=== PATIENT | female | born 1950 | race Caucasian/White ===

== ENCOUNTER 2020-06-23 09:48 | Outpatient (CLI) | payer MEDICARE, MEDICAID, SELFPAY | END 2020-06-23 09:49 | disposition home or self-care (01) | LOC: ANHBWCAUD 09:48 | DX: H90.3 Sensorineural hearing loss, bilateral (principal) | CPT/HCPCS: 92557; 92567 ==

== ENCOUNTER 2024-11-27 09:46 | Observation (INO) | payer MEDICARE, MEDICAID, SELFPAY ==
[2024-11-27] VITALS (11 sets, daily range): BP systolic 134–187; BP diastolic 52–81; PULSE 57–68; RESP 13–18; TEMP 36.6; O2SAT 95–100; BMI 37.3
--- NOTE | ~2024-11-27 | XR_ITS ---
EXAMINATION: XR chest 1V portable DATE: 11/27/2024 11:02 INDICATION: Chest pain. TECHNIQUE: A single frontal view of the chest was obtained. COMPARISON: None. FINDINGS: There is no pneumonia, pleural effusion, or pneumothorax. Cardiomegaly is noted. Surgical c lips in the right upper quadrant are likely from cholecystectomy. IMPRESSION: 1. Cardiomegaly. Reviewed, dictated and finalized at location L. IMPRESSION: 1. Cardiomegaly.
--- NOTE | 2024-11-27 09:51 | ECG_ITS ---
Test Date: 2024-11-27 09:54:44 Measurements Intervals [place] Rate: 65 P: 187 NE: 130 QRS: 5 QRSD: 102 T: 25 QT: 389 QTc: 404 Interpretive Statements SINUS RHYTHM LOW QRS VOLTAGE IN PRECORDIAL LEADS Electronically Signed On 11-28-2024 11:38:19 CDT by Mamadou Encarnacion D.O
[2024-11-27 10:42] LABS: Alanine Aminotransferase 11 U/L (6-35); Albumin Level 4.2 g/dL (3.5-5.1); Alkaline Phosphatase 122 U/L (38-126); Anion Gap 10 mmol/L (4-12); Aspartate Amino Transferase 21 U/L (14-36); Bilirubin,Total 0.3 mg/dL (0.2-1.3); Blood Urea Nitrogen 14 mg/dL (7-17); Calcium 9.5 mg/dL (8.4-10.2); Carbon Dioxide 26 mmol/L (22-30); Chloride 98 mmol/L (98-107); Estimated CRCL calculation 68 ml/min; Estimated Glomerular Filt Rate > 60; Glucose 96 mg/dL (65-110); Lipase 94 U/L (23-300); Potassium 4.5 mmol/L (3.4-5.0); Sodium 134 mmol/L (137-145)
[2024-11-27 10:47] LABS: Prothrombin Time 14.1 Seconds (11.1-14.7)
[2024-11-27 10:52] LABS: Troponin I < 0.012 ng/mL (0.000-0.034)
[2024-11-27 11:00] LABS: Basophils Percent Auto 0.5 % (0.2-1.2); Eosinophils Absolute Auto 0.2 K/mm3 (0-0.3); Hematocrit 31.1 % (37.0-47.0); Hemoglobin 10.2 g/dL (12.0-15.0); Immature Granulocyte Absolute 0.02 K/mm3 (0.00-0.031); Immature Granulocyte Percent A 0.4 % (0-0.5); Lymphocytes Absolute Auto 2.23 K/mm3 (0.9-3.2); Mean Corpuscular HGB Conc 32.8 g/dl (32-36); Mean Corpuscular Hemoglobin 30.6 pg (26-34); Mean Corpuscular Volume 93.4 fl (80-100); Mean Platelet Volume 9.3 fl (7.4-10.4); Monocytes Absolute Auto 0.6 K/mm3 (0.1-0.6); Monocytes Percent Auto 10.6 % (2.6-8.5); Neutrophils Absolute Auto 2.5 K/mm3 (1.3-6.7); Neutrophils Percent Auto 45.5 % (45.5-73.1); Platelet Count Result 357 k/mm3 (150-375); Red Blood Count 3.33 M/mm3 (4.2-5.4); Red Cell Distribution Width 13.6 % (11.5-14.5); White Blood Count 5.6 K/mm3 (4.5-10.0)
--- OUTSIDE RECORDS SUMMARY | 2024-11-27 11:22 | XMS_ITS | Referral Summary ---
Author Organization [facility] Medical Office Building B Address [address] [place] [address] Care Team Providers Care Websphere Portal Architect Name Role Phone Marcelina Morley MD Primary Care Provider [phone] Allergies No known active allergies Medications pedi multivit 97-ifxvngyw-oylu (MULTI-VIT WITH FLUORIDE-IRON) 0.25mg fluoride -10 mg iron/mL drops 0 2 Active Additional Information Patient not taking.Reported on 06/26/2023 calcium carbonate-vitamin D3 (OS-FELIPA 500 + D3) 1,250mg (500mg elemental) - 200 units per tablet 0 2 Active Additional Information Patient not taking.Reported on 06/26/2023 primidone (MYSOLINE) 250 mg tablet take 1 tablet (250MG) by oral route 3 times every day for maintenance 0 2 Active Additional Information Patient taking differently:250 mg2 times daily, Reported on 06/26/2023 sertraline (ZOLOFT) 100 mg tablet 8 Active lamoTRIgine (LaMICtal) 200 mg tablet Take 1 tablet (200 mg total) by mouth 5 Active vit C,M-Up-vwepf-lute in-zeaxan [phone] tz-dxpt-mx-mg capsule Take by mouth Active bisacodyl 5 mg tablet Take by mouth Active diphenhydrAMINE (BENADRYL) 25 mg capsule Take 1 tablet/capsule (25 mg total) by mouth every 6 (six) hours as needed for itching Active docusate sodium (COLACE) 100 mg capsuleIndication s:constipation Take 1 capsule (100 mg total) by mouth 2 (two) times a day Active ibuprofen (ADVIL,MOTRIN) 600 mg tablet Take 1 tablet (600 mg total) by mouth every 6 (six) hours as needed for pain Active aspirin 325 mg tablet Take 1 tablet (325 mg total) by mouth daily Active alum-mag hydroxide-simeth 200-200-25 mg chewable tablet Take by mouth every 6 (six) hours as needed for indigestion Active guaiFENesin (ROBITUSSIN) syrup 100 mg/5 mL Take 10 mL (200 mg total) by mouth 3 (three) times a day as needed for cough Active bacitracin 500 unit/gram ointment Apply topically 2 (two) times a day 120 g 0 Active Additional Information Patient not taking.Reported on 06/26/2023 nystatin ointment nystatin 100,000 unit/gram topical ointment Active carBAMazepine (TEGretol) 200 mg tablet Take 0.5 tablets (100 mg total) by mouth 2 (two) times a day 60 tablet 11 3 Active vit C,W-Lg-wpsex-lute in-zeaxan (Healthy Eyes SuperVision2) 250-90-10-1 mg capsule Take by mouth Active calcium carbonate (OS-FELIPA) 1,250 mg (500 mg elemental) tablet Take 1 tablet (1,250 mg total) by mouth 2 (two) times a day Active rosuvastatin (CRESTOR) 5 mg tablet Take 1 tablet (5 mg total) by mouth daily Active multivit ysudcwds-jdbp-EC- calcium (Therems-M) 9 mg iron-400 mcg tabletIndications :Vitamin Deficiency Prevention Take 1 tablet by mouth daily Active cholecalciferol (VITAMIN D-3) 2000 unit capsule 1 capsule (2,000 Units total) Active acetaminophen (TYLENOL) 325 mg tablet Take 2 tablets (650 mg total) by mouth every 6 (six) hours as needed for pain Active bismuth subsalicylate 525 mg/15 mL suspension Take by mouth Activ e Active Problems Problem Noted Date Diagnosed Date Therapeutic drug monitoring 02/18/2017 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 Denies 10/06/2023 Comments Unknown Sex and Gender Information Value Date Recorded Sex Assigned at Not on file Legal Sex Female 5:55 PM REFRIGERATOR TESTER Gender Identity Not on file Sexual Orientation Not on file Last Filed Vital Signs Vital Sign Reading Time Taken Comments Blood Pressure 119/57 10/06/2023 6:30 AM REFRIGERATOR TESTER Pulse 81 10/06/2023 6:30 AM REFRIGERATOR TESTER Temperature 36.7 C (98 F) 10/14/2019 9:15 PM REFRIGERATOR TESTER Respiratory Rate 18 12/25/2022 9:39 AM CDT Oxygen Saturation 94% 10/06/2023 6:30 AM REFRIGERATOR TESTER Inhaled Oxygen Concentration - - Weight 96.2 kg (212 lb) 10/06/2023 5:59 AM REFRIGERATOR TESTER Height 157.5 cm (5' 2 ) 10/06/2023 5:59 AM REFRIGERATOR TESTER Body Mass Index 38.78 10/06/2023 5:59 AM REFRIGERATOR TESTER Plan of Treatment Not on file Insurance MEDICARE [place] MEDICARE [facility] Care Teams Websphere Portal Architect Relationship Specialty Start Date End Date Marcelina Morley MD [address] [place] [address] PCP - General Family Medicine 12/25/22
--- OUTSIDE RECORDS SUMMARY | 2024-11-27 11:22 | XMS_ITS | Clinical Summary ---
Author Organization [facility] Medical Office Building B Address [address] [place] [address] Care Team Providers Care Soybean Specialties Cook Name Role Phone Marcelina Morley MD Primary Care Provider [phone] Allergies No known active allergies Medications pedi multivit 70-wkkvhcpn-ctwp (MULTI-VIT WITH FLUORIDE-IRON) 0.25mg fluoride -10 mg [...] mg total) by mouth 5 Active vit C,K-Ze-ydvdq-lute in-zeaxan [phone] sw-armc-oj-mg capsule Take by mouth Active bisacodyl 5 [...] day 60 tablet 11 3 Active vit C,R-Sv-ewats-lute in-zeaxan (Healthy Eyes SuperVision2) 250-90-10-1 mg capsule Take by mouth Active calcium carbonate (OS-FELIPA) 1,250 mg (500 mg elemental) tablet Take 1 tablet (1,250 mg total) by mouth 2 (two) times a day Active rosuvastatin (CRESTOR) 5 mg tablet Take 1 tablet (5 mg total) by mouth daily Active multivit vhaqhigf-qecy-DD- calcium (Therems-M) 9 mg iron-400 mcg tabletIndications [...] Mental retardation Epilepsy 04/28/2012 Overview (12/21/2016): Epilepsy Medical History Medical History Date Comments Hx Other Medical Hysterectomy Major depressive disorder major depressive disorder Hx Other Medical moderate mental retardation Seizure disorder (HCC) Seizure d isorder Social History Tobacco Use Types Packs/Day Years [...] on file Legal Sex Female 5:55 PM DROP HAMMER OPERATOR HELPER Gender Identity Not on file Sexual Orientation Not on file Obstetrics History Last Filed Vital Signs Vital Sign Reading Time Taken Comments Blood Pressure 119/57 10/06/2023 6:30 AM DROP HAMMER OPERATOR HELPER Pulse 81 10/06/2023 6:30 AM DROP HAMMER OPERATOR HELPER Temperature 36.7 C (98 F) 10/14/2019 9:15 PM DROP HAMMER OPERATOR HELPER Respiratory Rate 18 12/25/2022 9:39 AM CDT Oxygen Saturation 94% 10/06/2023 6:30 AM DROP HAMMER OPERATOR HELPER Inhaled Oxygen Concentration - - Weight 96.2 kg (212 lb) 10/06/2023 5:59 AM DROP HAMMER OPERATOR HELPER Height 157.5 cm (5' 2 ) 10/06/2023 5:59 AM DROP HAMMER OPERATOR HELPER Body Mass Index 38.78 10/06/2023 5:59 AM DROP HAMMER OPERATOR HELPER Plan of Treatment Health Maintenance Due Date Last Done Comments Colon Cancer Screening-Colonoscopy 1950 Depression Screening 1950 Fall Risk Assessment 1950 Hepatitis C Screening 1950 Hepatitis B Screening 1969 Zoster Vaccine (1 of 2) 2001 Pneumococcal vaccine 65+ (2 of 2 - PCV) 07/14/2014 07/14/2013, 06/16/2013 Well Visit 65+ 2016 Osteoporosis Screening-Bone Density Scan 12/22/2022 12/22/2020, 12/22/2020 Breast Cancer Screening-Mammogram 05/10/2024 05/10/2023, 05/09/2022, 04/20/2021, Additional history exists Covid-19 Vaccine (3 - 2023-2 5 season) 2024 11/15/2020, 10/25/2020 Influenza Vaccine (#1) 2024 , 06/24/2019, 07/03/2018, Additional history exists DTaP/Tdap/Td Vaccine (3 - Td or Tdap) 04/15/2028 04/15/2018, 07/02/2008, 06/16/2008 Insurance MEDICARE [facility] MEDICARE IDMO Care Teams Soybean Specialties Cook Relationship Specialty Start Date End Date Marcelina Morley MD [address] [place] [address] PCP - General Family Medicine 12/25/22
--- OUTSIDE RECORDS SUMMARY | 2024-11-27 11:22 | XMS_ITS | Data Portability ---
Author Organization [place] [facility] [employer], Main Office Address [address] [place] [address] Care Team Providers Care Cancer Genetics Assistant Name Role Phone COURTNEY VENTURA Primary Care Provider [phone] Assessment No assessment recorded. Plan of Treatment Reminders Order Date Submit Date Provider Last Modified By Organization Details Last Modified Time Details Appointments None record ed. Lab None record ed. Referral None record ed. Procedures None record ed. Surgeries None record ed. Imaging None record ed. Medication Orders None record ed. Patient TargetsNo targets recorded. Patient Instructions Encounter Date Encounter Id Patient Instructions Last Modified By Organization Details Last Modified Time 09/05/2023 [id number] cerumen was irrigated bilaterally [email or web address] Not available 09/05/2023 11:46:09 Reason for Referral None Reported. Problems Name Problem SNOMED Code Status Onset Date Resolution Date Notes Provider Name and Address Organization Details Recorded Time Impacted cerumen of bilateral ears 0025963043752 108 Active 2021 Not Available [facility] 3 05:10:47 Problem Notes None recorded. Medical Equipment None Reported. Allergies No known drug allergies Medications Name Sig Start Date Stop Date Status Note LastModified by Organization Details LastModified Time silver sulfadiazin e 1 % topical cream active Not Available Not Available Not Available acetaminoph en 325 mg tablet Take 2 tablets every 6 hours by oral route. active Not Available Not Available No t Available lamotrigine 200 mg tablet active Not Available Not Available Not Available ofloxacin 0.3 % eye drops 09/05 completed Not Available Not Available Not Available nystatin 100,000 unit/gram topical ointment active Not Available Not Available Not Available sertraline 100 mg tablet active Not Available Not Available Not Available permethrin 5 % topical cream 09/05 completed Not Available Not Available Not Available ciprofloxac in 500 mg tablet 03/03 completed Not Available Not Available Not Available zinc oxide 20 % topical ointment active Not Available Not Available Not Available ketorolac 0.5 % eye drops 09/05 completed Not Available Not Available Not Available primidone 250 mg tablet active Not Available Not Available Not Available prednisolon e acetate 1 % eye drops,suspe nsion 09/05 completed Not Available Not Available Not Available carbamazepi ne 100 mg chewable tablet active Not Available Not Available Not Available docusate sodium 100 mg capsule Take 1 capsule every day by oral route. active Not Available Not Available No t Available Banophen 25 mg capsule Take 1 capsule every 4 hours by oral route. active Not Available Not Available No t Available ibuprofen 600 mg tablet Take 1 tablet 3 times a day by oral route. active Not Available Not Available No t Available sertraline 50 mg tablet 03/03 completed Not Available Not Available Not Available white petrolatum topical jelly 01/08 completed Not Available Not Available Not Available amoxicillin 875 mg-potassiu m clavulanate 125 mg tablet 01/08 completed Not Available Not Available Not Available bisacodyl 5 mg tablet Take 1 tablet every day by oral route. active Not Available Not Available No t Available Stomach Relief 525 mg/15 mL oral suspension Take by oral route. active Not Available Not Available No t Available Oyster Shell Calcium-Vit mina D3 500 mg-5 mcg (200 unit) tablet 09/05 completed Not Available Not Available Not Available rosuvastati n 5 mg tablet active Not Available Not Available Not Available nitrofurant oin monohydrate /macrocryst als 100 mg capsule 09/05 completed Not Available Not Available Not Available calcium 250 mg (as carbonate)- vitamin D3 3.125 mcg (125 unit) tablet 01/08 completed Not Available Not Available Not Available sertraline 09/05 completed Not Available Not Available Not Available carbamazepi ne 03/03 completed Not Available Not Available Not Available lamotrigine 09/05 completed Not Available Not Available Not Available Aquaphor 4% ointment active Not Available Not Available No t Available primidone 03/03 completed Not Available Not Available Not Available Robafen 200 mg/10ml syrup 01/08 completed Not Available Not Available Not Available Oyster Shell + D3 active Not Available Not Available N ot Available Vitamin D3 50 mcg (2,000 unit) capsule Take by oral route. 01/08 completed Not Available Not Available Not Available Healthy Eyes SuperVision 250mg- 90mgm cap 01/08 completed Not Available Not Available Not Available Antacid-Ant igas 200 mg-200 mg-20 mg/5 mL oral suspension Take by oral route. active Not Available Not Available No t Available Rebeca-Tussin 100 mg/5 mL oral liquid Take 10 mL every 4 hours by oral route. active Not Available Not Available No t Available Therems-M 9 mg iron-400 mcg tablet 01/08 completed Not Available Not Available Not Available Healthy Eyes SuperVision 2 active Not Available Not Available Not Available Thera-M 19 mg iron-400 mcg tablet active Not Available Not Available N ot Available Vitals Date Recorded Body height Body temperature Provider N tiffanie and Address Organization Details Last Updated DateTime 09/01/2021 157.48 cm 97.8 [degF] Not Available [facility] 11/14/2022 05:06:00 Date Recorded Body height Body temperature Provider N tiffanie and Address Organization Details Last Updated DateTime 01/30/2022 157.48 cm 98.3 [degF] Not Available [facility] 11/14/2022 05:06:00 Date Recorded Body height Body temperature Provider N tiffanie and Address Organization Details Last Updated DateTime 12/13/2022 157.48 cm 97.8 [degF] Anna Odonnell RN [facility] [employer] 12/13/2022 11:11:59 Date Recorded Body height Body mass index (BMI) Body weight Body temperature Provider Name and Address Organization Details Last Updated DateTime 09/05/2023 157.48 cm 38 kg/m2 52799.21 g 97.6 [degF] Anna Odonnell RN [facility] [employer] 09/05/2023 11:19:55 Date Recorded Body height Body temperature Provider N tiffanie and Address Organization Details Last Updated DateTime 01/09/2024 157.48 cm 97.6 [degF] Anna Odonnell RN [facility] [employer] 01/09/2024 14:31:47 Social History Question Answer Notes LastModified by Organizat ion Details LastModified Time Tobacco Smoking Status Never Smoker Not Available [facility] 11/14/2022 05:01:56 What Is Your Level Of Alcohol Consumption? None [id number] Information not available 11/14/2022 What Is Your Level Of Caffeine Consumption? Occasional [id number] Information not available 11/14/2022 How Much Tobacco Do You Chew? None [id number] Information not available 11/14/2022 In The 14 Days Before Symptom Onset, Have You Had Close Contact With A Laboratory-confir med COVID-19 While That Case Was Ill? No [id number] Information not available 11/14/2022 In The 14 Days Before Symptom Onset, Have You Had Close Contact With A Person Who Is Under Investigation For COVID-19 While That Person Was Ill? No [id number] Information not available 11/14/2022 Which Illicit Or Recreational Drugs Have You Used? None [id number] Information not available 11/14/2022 Do You Or Have You Ever Used E-cigarettes Or Vape? Never Used Electronic Cigarettes [id number] Information not available 11/14/2022 Have You Recently Traveled Abroad? No [id number] Information not available 11/14/2022 Sex: Unknown Functional Status None recorded. Mental Status None recorded. Family History Relationship Description Onset Age of this Age Resolved Age Notes LastModified by Organization Details LastModified Time Father No current problems or disability [email or web address] Not available 12/13 11:12:54 Mother No current problems or disability [email or web address] Not available 12/13 11:12:54 Medical History Condition Response SLEEP APNEA N MRSA N ALLERGIES/HAYFEVER N LUNG DISEASE/DISORDER N INSOMNIA N RADIATION / CHEMOTHERAPY N COPD N HIGH CHOLESTEROL / HYPERLIPIDEMIA N HYPERTHYROIDISM N BLOOD DISEASES N EAR OR HEARING PROBLEMS N HYPOTHYROIDISM N DEPRESSION (INCLUDING POST ) Y HAVE YOU BEEN HOSPITALIZED OR SEEN IN [facility] ER IN THE PAST YEAR ? N STROKE/TIA N ULCERS N OBESITY N HISTORY WITH COMPLICATIONS WITH ANESTHES IA ? N ANEURYSM N NO SIGNIFICANT PAST MEDICAL HISTORY N USE OF BLOOD THINNERS N DIABETES, TYPE N PARATHYROID DISEASE N ENT N SEASONAL ALLERGIES N HEARTBURN / REFLUX N HEPATITIS / LIVER DISEASE N SLEEP DISORDER N HEADACHES/MIGRAINES N SEIZURES/EPILEPSY Y CHF N PACEMAKER N DIZZINESS N HEART DISEASE/HEART PROBLEMS Y AIDS/HIV N FRACTURES N HYPERTENSION N CANCER: SPECIFY N TOURETTE'S N BLOOD TRANSFUSION N ANESTHESIA COMPLICATIONS N ANEMIA/BLOOD DISORDER N CHRONIC EAR INFECTIONS N TUBERCULOSIS N Gynecological HistoryNo gynecological history recorded. Obstetrics History GPAL:G 0 P 0 0 0 0 Past Encounters Encounter ID Performer Location Encounter Start Date Encounter Closed Date Diagnosis/Indication Diagnosis SNOMED-CT Code Diagnosis ICD10 Code Diagnosis Note [id number] _PETER IGRATION_ DEFAULT_1 _1 , 03/03/2021 00:00:00 03/03/2021 12:18:38 [id number] _PETER IGRATION_ DEFAULT_1 _1 , 09/01/2021 00:00:00 09/01/2021 11:35:16 [id number] [facility] [place] [address] [place] [address] 01/30/2022 00:00:00 01/30/2022 11:29:15 [id number] MD ALYSON [facility] [place] [address] [place] [address] 12/13/2022 11:01:44 12/13/2022 11:29:54 Impacted cerumen of bilateral ears [id number] 392444 H61.23 [id number] Robert Aponte MD [facility] [place] [address] [place] [address] 09/05/2023 10:51:12 09/05/2023 11:48:10 Impacted cerumen of bilateral ears [id number] 453074 H61.23 [id number] Robert Aponte MD [facility] [place] [address] [place] [address] 01/09/2024 14:16:40 01/13/2024 15:07:20 Impacted cerumen of bilateral ears [id number] 460499 H61.23 Health Concerns Section Related Observation LastModified by Organization Detai ls LastModified Time None Recorded Concern Status LastModified by Organization Details LastModified Time None Recorded Advance Directives Directive None Recorded Payers Encounter Date Sequence Insurance Name Policy Number Policy Recio Covered Member ID Recio Member ID Guarantor Name 12/13/2022 1 [place] Leatha Klein [id number] Leatha Klein 12/13/2022 2 [place] [facility] Leatha Klein [id number] Leatha Klein 09/05/2023 1 [place] Leatha Melendez Klein [id number] Leatha Klein 09/05/2023 2 [place] [facility] Leatha Klein [id number] Leatha Klein 01/09/2024 1 [place] Leatha Melendez Klein [id number] Leatha Klein 01/09/2024 2 [place] [facility] Leatha Klein [id number] Leatha Klein Notes Date Note Type Note Provider Name and Address Organization Details Recorded Time 12/13/2022 text/html cerumen impaction Robert Aponte MD [address], [place], [address], [employer] 12/13/2022 11:25:01 09/05/2023 text/html cerumen impaction Robert Aponte MD [address], [place], [address], [employer] 09/05/2023 11:46:38 01/09/2024 text/html cerumen impaction bilateral Robert Aponte MD [address], [place], [address], [employer] 01/09/2024 14:53:31 OBGyn Episode No OBEpisode recorded.
--- OUTSIDE RECORDS SUMMARY | 2024-11-27 11:22 | XMS_ITS | Clinical Summary ---
Author Organization [facility] Address [facility] [place] [address] Care Team Providers Care Fell Cutter Name Role Phone Luís Saenz DO Primary Care Provider [phone] Allergies No known active allergies Medications ondansetron (ZOFRAN) 4 MG tabletIndication s:N&V (nausea and vomiting),Abdomi nal pain, unspecified abdominal location Take 1 tablet (4 mg total) by mouth every 8 (eight) hours as needed for Nausea. 12 tablet 03/31/2024 Active Social History Tobacco Use Types Packs/Day Years Used Date Smoking Tobacco: Never Smokeless Tobacco: Never Tobacco Cessation:Counseling Given: Not Answered Comments Unknown Sex and Gender Information Value Date Recorded Sex Assigned at Not on file Legal Sex Female 11:08 AM CDT Gender Identity Not on file Sexual Orientation Not on file Last Filed Vital Signs Vital Sign Reading Time Taken Comments Blood Pressure 102/64 03/31/2024 11:00 PM CDT Pulse 65 03/31/2024 11:00 PM CDT Temperature 36.3 C (97.4 F) 03/31/2024 4:32 PM CDT Respiratory Rate 11 03/31/2024 11:00 PM CDT Oxygen Saturation 96% 03/31/2024 11:00 PM CDT Inhaled Oxygen Concentration - - Weight 113.4 kg (250 lb) 03/31/2024 5:04 PM CDT Height 167.6 cm (5' 6 ) 03/31/2024 5:04 PM CDT Body Mass Index 40.35 03/31/2024 5:04 PM CDT Plan of Treatment Health Maintenance Due Date Last Done Comments ASCVD Statin 1950 Colorectal Cancer Screening Colonoscopy (10 Years) 1950 Hepatitis C 1969 Zoster Vaccines (1 of 2) 2001 Pneumococcal Vaccine: 65+ Years (2 of 2 - PCV) 07/14/2014 07/14/2013, 06/16/2013 Annual Medicare Wellness Visit 2016 COVID-19 Vaccine ( season) 2024 08/19/2023, 06/28/2022, 04/27/2022, Additional history exists Influenza Adult (#1) 2024 06/10/2023, 06/28/2022, 06/22/2021, Additional history exists Mammogram Screening 05/10/2025 05/10/2023, 05/09/2022, 04/20/2021, Additional history exists DTaP, Tdap and Td Vaccines (3 - Td or Tdap) 04/15/2028 04/15/2018, 07/02/2008, 06/16/2008 Dexa Scan (General) Completed 12/22/2020, RSV Immunization or 60+ Years Completed 10/24/2023 Meningococcal B Vaccine Aged Out No l onger eligible based on patient's age to complete this topic Meningococcal Vaccine Aged Out No jarrod katya eligible based on patient's age to complete this topic RSV Immunizations Under 20 Months Aged Out No longer eligible based on patient's age to complete this topic Insurance [employer] Care Teams Fell Cutter Relationship Specialty Start Date End Date Luís Saenz DO [address] [place] [address] PCP - General INTERNAL MEDICINE 01/30/24
--- OUTSIDE RECORDS SUMMARY | 2024-11-27 11:22 | XMS_ITS | Clinical Summary ---
Author Organization [facility] Address [address] [place] [address] Phone Care Team Providers Care Sales Clerk Food Name Role Phone Luís Rueda DPM Unavailable [phone] Evette Tim MD Primary Care Provider [phone] Allergies No known active allergies Medications lamoTRIgine (LAMICTAL) 200 MG TabletIndications: Seizure disorder (HCC) Take 200 mg by mouth 2 times daily. 30 Tab 08/19/20 15 Active carBAMazepine (TEGRETOL) 100 MG Chewable TabletIndications: Seizure disorder (HCC) Take 100 mg by mouth 2 times daily (with meals). 360 Tab 08/19/20 15 Active primidone (MYSOLINE) 250 MG TabletIndications: Seizure disorder (HCC) Take 250 mg by mouth 2 times daily. 120 Tab 08/19/20 15 Active Cholecalciferol (VITAMIN D-3 PO) Take 2,000 Units by mouth every morning. Active sertraline (ZOLOFT) 100 MG Tablet Take 100 mg by mouth daily. 03/16/20 17 Active Multiple Vitamins-Minerals (PRESERVISION AREDS 2) Capsule Take 1 Cap by mouth 2 times daily. Active bisacodyl EC (DULCOLAX) 5 MG Tablet Delayed Response Take 5 mg by mouth daily as needed. Active bismuth subsalicylate (PEPTO-BISMOL) 262 MG/15ML Suspension Take 30 mL by mouth every 6 hours as needed. Active acetaminophen (TYLENOL) 325 MG Tablet Take 650 mg by mouth every 4 hours as needed. Active silver sulfADIAZINE (SILVADENE) 1 % Cream Apply 2 times daily. Application Site: Apply topically to left ankle and calg twice daily. 7am 9pm 400 g 12/28/19 22 Active Additional Information Patient not taking.Reported on 04/21/2024 Multivitamin-[place] als (Therems-M) Tablet Take 1 Tablet by mouth daily. Active nystatin (MYCOSTATIN) 536702 UNIT/GM Ointment 07/30/20 22 Active Cholecalciferol (Vitamin D3) 2000 UNIT Capsule 12/02/19 23 Active Robafen 100 MG/5ML Liquid 09/24/19 23 Active rosuvastatin (CRESTOR) 5 MG TabletIndications: Hyperlipidemia, unspecified hyperlipidemia type Take 1 Tablet by mouth daily. 90 Tablet 3 05/16/20 23 Active Additional Information Patient not taking.Reported on 04/21/2024 Calcium Carb-Cholecalcifer ol (Oyster Shell Calcium + D3) 500-10 MG-MCG TabletIndications: Hypocalcemia Take 1 Tablet by mouth daily. 90 Tablet 3 05/17/20 23 Active polyethylene glycol (GLYCOLAX, MIRALAX) 17 g PackIndications:Co nstipation Take 1 Packet by mouth 2 times daily as needed for Constipation - 1st line. Dissolve in 4-8 oz of liquid. Indications: Constipation 90 Packet 01/22/20 24 Active Additional Information Patient not taking.Reported on 04/21/2024 ondansetron (ZOFRAN-ODT) 4 MG TABLET DISPERSIBLE Take 1 Tablet by mouth every 6 hours as needed for Nausea - 1st line. 10 Tablet 01/22/20 24 Active Additional Information Patient not taking.Reported on 04/21/2024 potassium chloride SA (KLORCON M) 20 MEQ Tablet Controlled Release Take 1 Tablet by mouth 2 times daily (with meals). 90 Tablet 01/22/20 24 Active senna (SENOKOT) 8.6 MG Tablet Take 1 Tablet by mouth daily. 30 Tablet 01/22/20 24 Active Additional Information Patient not taking.Reported on 04/21/2024 furosemide (LASIX) 20 MG Tablet Take 20 mg by mouth if needed (edema). Active pantoprazole (PROTONIX) 20 MG Tablet Delayed Response Take 20 mg by mouth daily. Active Active Problems Problem Noted Date Diagnosed Date Acute kidney injury 01/20/2024 Infectious diarrhea 01/19/2024 UTI (urinary tract infection) 01/19/2024 Septicemia 01/19/2024 Urinary tract infection without hematuria, site unspecified 01/19/2024 Abnormality of gait due to impairment of balance 07/03/2021 Frequent falls 07/03/2021 Osteopenia 03/21/2021 Osteoarthritis of left wrist 03/21/2021 Constipation 01/16/2021 Vitamin D deficiency 05/08/2019 Obesity, Class II, BMI 35-39.9 05/08/2019 Major depressive disorder, recurrent episode, mo derate 12/13/2017 Conductive hearing loss, external ear 11/26/2017 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 Raynaud's disease 08/30/2016 BOB on CPAP 02/20/2016 Seizure disorder 02/20/2016 Overview (03/27/2019): Overview: Epilepsy Other specified peripheral vascular diseases Resolved Problems Problem Noted Date Diagnosed Date Resolved Date Pressure injury of buttock, stage 1 11/16/2021 03/20/2022 Immunizations Immunization Administration Dates Next Due Covid-19, Mrna, Lnp-s, Pf, 3 0 Mcg/0.3 Ml Dose (Instapage) 11/15/2020,10/25/2020 Influenza Vaccine greater than 3 yrs 05/17/2015, 05/17/2014 Influenza Vaccine less than 3 yrs 07/29/2017 Influenza Vaccine, Quadrivalent, PF 05/18,06/28/2022,06/22/2021,2016 Influenza, Injectable, Mdck,quadrivalent,with Preservative 06/24/2019 Influenza, Injectable, Quadrivalent 07/13/2016 Influenza, Quadrivalent, Adjuvanted 06/30/2020 Influenza, Seasonal, Injecta ble, Undefined 07/29/2017,05/17/2015,05/17/2015,2013,05/17/2014,06/19/2013 PNEUMONIA ADULT IM [id number] 07/14/2013 Pneumococcal Vaccine Adult - 23 Valent 07/14/2013,06/16/2013 TB Skin Test 09/16/2014 TD VACCINE 04/15/2018,06/16/2008 TDAP Vaccine 07/02/2008 Family History Medical History Relation Name Comments Diabetes Father Relation Name Status Comments Father Social History Tobacco Use Types Packs/Day Years Used Date Smoking Tobacco: Never Smokeless Tobacco: Never Tobacco Cessation:Counseling Given: Not Answered Alcohol Use Standard Drinks/Week Comments No 0 (1 standard drink = 0.6 oz pur e alcohol) [facility] Utilities Answer Date Recorded In the past 12 months has e [employer], gas, oil, or water [employer] threatened to shut off services in your home? Patient declined 01/19/2024 Social Connection and Isolation Panel [NHANES] A nswer Date Recorded In a typical week, how many times do you talk on the phone with family, friends, or neighbors? Patient declined 01/19/2024 How often do you get togethe r with friends or relatives? Patient declined 01/19/2024 How often do you attend uatsdin or gnosticist serv ices? Patient declined 01/19/2024 Do you belong to any clubs o r organizations such as uatsdin groups, unions, fraternal or athletic groups, or school groups? Patient declined 01/19/2024 How often do you attend meet ings of the clubs or organizations you belong to? Patient declined 01/19/2024 Are you , , di vorced, , never , or living with a partner? Patient declined 01/19/2024 AUDIT-C Answer Date Recorded Q1: How often do you have a drink containing alc ohol? Patient declined 01/19/2024 Q2: How many drinks containi ng alcohol do you have on a typical day when you are drinking? Patient declined 01/19/2024 Q3: How often do you have si x or more drinks on one occasion? Patient declined 01/19/2024 Overall Financial Resource Strain (CARDIA) Answe r Date Recorded How hard is it for you to pa y for the very basics like food, housing, medical care, and heating? Patient declined 01/19/2024 [facility] Occupat ional Health - Occupational Stress Questionnaire Answer Date Recorded Do you feel stress - tense, restless, nervous, or anxious, or unable to sleep at night because your mind is troubled all the time - these days? Patient declined 01/19/2024 Exercise Vital Sign Answer Date Recorde d On average, how many days pe r week do you engage in moderate to strenuous exercise (like a brisk walk)? Patient declined On average, how many minutes do you engage in exercise at this level? Patient declined 01/19/2024 Hunger Vital Sign Answer Date Recorded Within the past 12 months, y ou worried that your food would run out before you got the money to buy more. Patient declined Within the past 12 months, t he food you bought just didn't last and you didn't have money to get more. Patient declined 01/2024 PRAPARE - Transportation Answer Date Re corded In the past 12 months, has l ack of transportation kept you from medical appointments or from getting medications? Patient declined 01/19/2024 In the past 12 months, has l ack of transportation kept you from meetings, work, or from getting things needed for daily living? Patient declined 01/19/2024 Housing Stability Vital Sign Answer Ryland e Recorded In the last 12 months, was t here a time when you were not able to pay the mortgage or rent on time? Patient declined 01/19/20 24 In the last 12 months, how many places have you lived? 1 01/19/2024 In the last 12 months, was t here a time when you did not have a steady place to sleep or slept in a fci (including now)? Patient declined 01/19/2024 Sexually Active Control Partners Comments Never Comments No Sex and Gender Information Value Date Recorded Sex Assigned at Not on file Legal Sex Female 8:44 PM CDT Gender Identity Not on file Sexual Orientation Not on file Occupation Industry Job Start Date Job End Date disabled Not on file Not on file Not on file Last Filed Vital Signs Vital Sign Reading Time Taken Comments Blood Pressure 122/72 04/21/2024 9:26 AM CDT Pulse 75 04/21/2024 9:26 AM CDT Temperature 36.7 C (98.1 F) 04/21/2024 9:26 AM CDT Respiratory Rate 20 04/21/2024 9:26 AM CDT Oxygen Saturation 93% 04/21/2024 9:26 AM CDT Inhaled Oxygen Concentration - - Weight 97.9 kg (215 lb 14.4 oz) 04/21/2024 9:26 AM CDT Height 157.5 cm (5' 2 ) 04/21/2024 9:26 AM CDT Body Mass Index 39.49 04/21/2024 9:26 AM CDT Plan of Treatment Health Maintenance Due Date Last Done Comments Hepatitis C Virus (HCV) Screening 1950 Cologuard 2001 Immunochemical Fecal Occult Blood 2001 Zoster Immunization (1 of 2) 2001 DEXA Bone Density 12/22/2022 12/22/2020 Colonoscopy 11/03/2023 11/03/2013 Colorectal Cancer Screening 11/03/2023 Influenza Immunization (#1) 05/17/202405/18, 06/28/2022, 06/22/2021, Additional history exists SARS-COV-2 Immunization ( season) 2024 08/19/2023, 06/28/2022, 04/27/2022, Additional history exists Mammogram 05/12/2025 05/12/2024, 04/17, 05/10/2023, Additional history exists Td Immunization Every 10 Years (Adults With 1 Tdap) 04/15/2028 04/15/2018, 07/02/2008, 06/16/2008 11/03/2013 Pneumococcal Immunization (50+ years) Discontinued 07/14/2013, 07/14/2013, 06/16/2013 Pneumococcal Immunization Combined Discontinued 07/14/2013, 07/14/2013, 06/16/2013 Respiratory Syncytial Virus (RSV) Immunization (Adult) Completed 10/24/2023 Hepatitis B Immunization Aged Out No longer eligible based on patient's age to complete this topic Meningococcal Immunization (ACWY) Aged Out No longer eligible based on patient's age to complete this topic Rotavirus Immunization Aged Out No lo nger eligible based on patient's age to complete this topic Procedures Procedure Name Priority Date/Time Associated Diagnosis Comments MC SCREENING BILATERAL DIGITAL W CAD Routine 05/12/2024 1:00 PM CDT Visit for screening mammogram MC BONE DENSITOMETRY AXIAL SKELETON Routine 12/22/2020 2:17 PM CDT Postmenopausal HM COLONOSCOPY Routine 11/03/2013 from Last 3 Months or Most Recently Relevant to Health Maintenance Results * MC SCREENING BILATERAL DIGITAL W CAD (05/12/2024 1:00 PM CDT) Anatomical Region Laterality Modality breast Bilateral Mammography 05/12/2024 12:5 7 PM CDT Narrative 05/13/2024 10:54 AM CDT - MC SCREENING BILATERAL DIGITAL W CAD BILATERAL DIGITAL SCREENING MAMMOGRAM WITH CAD WITH MEDIOLATERAL OBLIQUE CRANIOCAUDAL: 05/12/2024 The study was acquired using digital technology and interpreted from soft copy. Current study was also evaluated with ICAD version 7.2. CLINICAL: Routine screening. Patient has no complaints. Patient is from a care home. Exam performed in a wheelchair. Technologist held for exam. No personal history of cancer. No family history of breast cancer. COMPARISONS: Comparison is made to exams dated: 05/10/2023, 05/09/2022, 04[facility]20[facility]2021, [facility] BREAST TISSUE:There are scattered fibroglandular densities in both breasts. FINDINGS: The study is limited due to the patient's inability to fully cooperate with positioning. No significant masses, calcifications, or other findings are seen in either breast. There has been no significant interval change. IMPRESSION: BI-RAD 2 BENIGN There is no mammographic evidence of malignancy. A 1 year screening mammogram is recommended. A letter will be sent to the patient with these results. The patient will be entered into a reminder system with a target due date of 1 year for her next screening exam. Electronically signed by: Capri silver/abby:05/13/2024 10:17:28 Tv Production Assistant(s): RT Morteza(R)(M), [facility] letter sent: Normal Exam Reading location: [facility] BI-RADS: 2 Benign Procedure Note Capri Slaughter MD - 05/13/2024 - MC SCREENING BILATERAL DIGITAL W CAD BILATERAL DIGITAL SCREENING MAMMOGRAM WITH CAD WITH MEDIOLATERAL OBLIQUE CRANIOCAUDAL: 05/12/2024 The study was acquired using digital technology and interpreted from soft copy. Current study was also evaluated with ICAD version 7.2. CLINICAL: Routine screening. Patient has no complaints. Patient is from a care home. Exam performed in a wheelchair. Technologist held for exam. No personal history of cancer. No family history of breast cancer. COMPARISONS: Comparison is made to exams dated: 05/10/2023, 05/09/2022, 04/20/2021, and 04/08/2020 [facility]. BREAST TISSUE:There are scattered fibroglandular densities in both breasts. FINDINGS: The study is limited due to the patient's inability to fully cooperate with positioning. No significant masses, calcifications, or other findings are seen in either breast. There has been no significant interval change. IMPRESSION: BI-RAD 2 BENIGN There is no mammographic evidence of malignancy. A 1 year screening mammogram is recommended. A letter will be sent to the patient with these results. The patient will be entered into a reminder system with a target due date of 1 year for her next screening exam. Electronically signed by: Capri silver/abby:05/13/2024 10:17:28 Tv Production Assistant(s): RT Morteza(R)(M), [facility] letter sent: Normal Exam Reading location: [facility] BI-RADS: 2 Benign Evette Tim MD IMG MAMMO ORDERABLES Final Result * MC BONE DENSITOMETRY AXIAL SKELETON (12/22/2020 2:17 PM CDT) Anatomical Region Laterality Modality BODY N/A Other 12/23/2020 7:18 AM CDT Impressions 12/23/2020 7:21 AM CDT IMPRESSION: Osteopenia. Fracture risk assessment (FRAX): 10 year risk for a major osteoporotic fracture is 12.4 % 10 year risk for a hip fracture is 2.7 % The FRAX tool has not been validated in patients currently or previously treated with pharmacotherapy for osteoporosis. In such patients, clinical judgement must be exercised in interpreting FRAX scores as the fracture risk may be overestimated. REFERENCE: Additional Clinical Information: Bone mineral density: Within the expected range for age (Z-score above -2.0) Below the expected range for age (Z-score is -2.0 or below) For further information, including treatment recommendations, please refer to the 2013 ISCD Official Positions (http://www.iscd.org) and the NOF's Clinician's Guide to Prevention and Treatment of Osteoporosis (http://www.nof.org/professionals/clinical-guidelines) Medical evaluation for secondary causes of low bone mineral density may be appropriate. Narrative 12/23/2020 7:21 AM CDT EXAM DESCRIPTION: [facility] BONE DENSITOMETRY AXIAL SKELETON REASON FOR STUDY: 70 y/o year old F with given history of screening. 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 AP LUMBAR SPINE L1-L4: Total BMD is 1.253 g/cm2 Z-score is 0.5 Most recent prior BMD was 1.251 g/cm2 There has been a 0.2% change in BMD which is not statistically significant. LEFT HIP: Current Total BMD is 0.83 g/cm2 Z-score is -1.3 Most recent prior Total BMD was 0.861 g/cm2 There has been a -2.7% change in BMD which is not statistically significant. Current femoral neck BMD is 0.75 g/cm2 Z-score is -2.3 THIS IS AN ELECTRONICALLY VERIFIED FINAL REPORT 12/23/2020 7:18 AM - Electronically signed by Kendall Weaver M.D. AG: FRANK Report ID: [id number] Reading Location: [id number] Procedure Note Kendall Weaver MD - 12/23/2020 EXAM DESCRIPTION: [facility] BONE DENSITOMETRY AXIAL SKELETON REASON FOR STUDY: 70 y/o year old F with given history of screening. Spray Technician/Model: [employer] (S/N [id number]) CLINICAL INFORMATION: Current height: 5 foot 1 inches Maximum height: 5 foot inches Weight: 193 pounds Risk factors: None COMPARISON: 10/07/2013 FINDINGS: Because the patient is a premenopausal female or a male under the age of 50 the results reported will be Z-scores. AP LUMBAR SPINE L1-L4: Total BMD is 1.253 g/cm2 Z-score is 0.5 Most recent prior BMD was 1.251 g/cm2 There has been a 0.2% change in BMD which is not statistically significant. LEFT HIP: Current Total BMD is 0.83 g/cm2 Z-score is -1.3 Most recent prior Total BMD was 0.861 g/cm2 There has been a -2.7% change in BMD which is not statistically significant. Current femoral neck BMD is 0.75 g/cm2 Z-score is -2.3 THIS IS AN ELECTRONICALLY VERIFIED FINAL REPORT 12/23/2020 7:18 AM - Electronically signed by Kendall Weaver M.D. AG: FRANK Report ID: [id number] Reading Location: [place] [address] IMPRESSION: Osteopenia. Fracture risk assessment (FRAX): 10 year risk for a major osteoporotic fracture is 12.4 % 10 year risk for a hip fracture is 2.7 % The FRAX tool has not been validated in patients currently or previously treated with pharmacotherapy for osteoporosis. In such patients, clinical judgement must be exercised in interpreting FRAX scores as the fracture risk may be overestimated. REFERENCE: Additional Clinical Information: Bone mineral density: Within the expected range for age (Z-score above -2.0) Below the expected range for age (Z-score is -2.0 or below) For further information, including treatment recommendations, please refer to the 2013 ISCD Official Positions (http://www.iscd.org) and the NOF's Clinician's Guide to Prevention and Treatment of Osteoporosis (http://www.nof.org/professionals/clinical-guidelines) Medical evaluation for secondary causes of low bone mineral density may be appropriate. Saloni López MD IMG DEXA ORDERABLES Final Re sult * HM COLONOSCOPY (11/03/2013) us Rafael Gomez DO PROCEDURE/MINOR SURGICAL ORDERA BLES Final Result from Last 3 Months or Most Recently Relevant to Health Maintenance Insurance MEDICARE [place] Advance Directives Documents on File Type Date Recorded Patient Director Of Regional Sales Expl anation Guardian of Person 04/20/2021 10:05 AM Cons ent from Guardian * Full Code (Latest Code Status on File) Date Activated Date Inactivated Comments 01/19/2024 2:54 PM 01/28/2024 2:53 PM CPR-Full Brenda tment: FULL ARREST: Attempt Resuscitation/CPR wit intubation and mechanical ventilation. PRE-ARREST: Use entire range of life support measures to stabilize the patient. Care Teams Sales Clerk Food Relationship Specialty Start Date End Date Evetet Tim MD [address] [place] [address] PCP - General Family Medicine 10/21/23 Luís Rueda DPM Podiatry 01/12/16
--- NOTE | 2024-11-27 12:45 | PM.IMHP ---
H&P: HPI History of Present Illness Date/Time: 11/27/24 12:45 Chief Complaint: Agitation, Irregular Heart Rate Narrative: 74 y/o F presents here with agitation and an irregular heart rate with PMH of epilepsy, seizures, moderate intellectual disability, dysphagia, HLD, LA, Raynaud's, sleep apnea, renal disease, and bipolar disorder. The patient presents here via EMS from [facility] for further evaluation of agitation. Per EMS report, the [place] called them after the patient had an episode of screaming yelling and agitation. This is unusual for the patient who has a history of mental delays and nonverbal at baseline but will follow commands. She was able to take her morning medications and once back in bed she clenched her chest. This prompted the residential to call EMS. They gave the patient 1 sublingual nitro. While in route to the hospital, they noted 2 episodes of polymorphic V-tach. They report the 1st episode lasted approximately 45 seconds and the 2nd episode lasted approximately 10-15 seconds. EMS then administered a 2nd nitro, 324 ASA, and 2G of Mag IV. Currently reporting diffuse abdominal pain and tenderness with palpation (diffuse as well). No nausea or vomiting. Last BM was possibly today, patient unreliable. Initial VS at presentation: 98? F, HR 65, R 15, 22591, and 100% on RA. ED workup showed: No leukocytosis, hemoglobin 10.2, sodium 134, creatinine 0.64 and normal GFR, initial troponin negative. CXR showed cardiomegaly. EKG showed an ectopic atrial rhythm, rate 65, low QRS voltage in precordial leads. Awaiting formal read. Review of Systems Review of Systems: All systems reviewed & are unremarkable except as noted in HPI and below [facility] Past Medical History Medical History (Updated 11/27/24 @ 22:06 by Petrona Corrales APRN) Bipolar disorder Sleep apnea Renal disease Raynauds disease Myocardial infarction HLD (hyperlipidemia) Dysphagia Moderate intellectual disability Epilepsy Social History Social History Smoking status: Never smoker Spiritual care concerns: No Meds Home Medications and Allergies Home Medications ?Medication ?Instructions ?Recorded ?Confirmed ?Type atorvastatin 20 mg tablet 20 mg PO QPM 11/27/24 11/27/24 History calcium carbonate (Calcium 500) 500 mg PO TID 11/27/24 11/27/24 History carbamazepine 100 mg chewable 500 mg PO TID 11/27/24 11/27/24 History tablet escitalopram oxalate 5 mg tablet 5 mg PO DAILY 11/27/24 11/27/24 History lamotrigine 200 mg tablet 200 mg PO Q12H 11/27/24 11/27/24 History potassium chloride 20 mEq 40 meq PO DAILY@0630 11/27/24 11/27/24 History tablet,extended release(part/cryst) primidone 250 mg tablet 250 mg PO Q12H 11/27/24 11/27/24 History Allergies Allergy/AdvReac Type Severity Reaction Status Date / Time No Known Allergies Allergy Verified 11/27/24 09:56 Vital Signs Vital Signs - 24 hr 11/27/24 09:42 11/27/24 09:57 11/27/24 10:01 Temperature 98 F Pulse Rate 65 Respiratory Rate 15 Blood Pressure 164/81 H Pulse Oximetry 100 95 Oxygen Delivery Room Air Room Air 11/27/24 10:57 11/27/24 12:30 Temperature Pulse Rate 64 61 Respiratory Rate 17 17 Blood Pressure 162/66 H 150/66 H Pulse Oximetry 100 100 Oxygen Delivery Exam Narrative: verbal, answers simple questions. heart and lungs fine. Const: General: comfortable and no acute distress Other: Elderly, female, nontoxic appearance HENMT: Face/Nose/Sinus: Normal nares present Mouth: Yes moist mucous membranes Eyes: General: appearance normal, both eyes and all related structures Sclera: sclerae normal Pupils: Equal, round and reactive pupils present EOM: EOMs intact bilaterally Resp: Effort & Inspection: normal respiratory effort Auscultation: clear to auscultation bilaterally Cardio: Rate: regular rate Rhythm: regular rhythm Other: S1-S2 present without murmur, rub, ectopy GI: Other: diffuse abdominal pain with palpation. No distension. Normoactive bowel sounds in all quadrants. Skin: General skin exam: normal color and no rashes or lesions noted Wounds: no wounds Neuro: Speech: normal speech Motor exam (neuro): 5/5 motor strength present throughout Sensory Exam: normal sensation Other: A/Ox3, intellectual disability. Follows commands. Extrem: General: normal to inspection Psych: Mental Status: mental status grossly normal Affect: normal affect Other: Fair to poor insight and judgment, very pleasant. H&P: Results Labs Labs: Short CBC 11/27/24 Range/Units 10:18 WBC 5.6 (4.5-10.0) K/mm3 Hgb 10.2 L (12.0-15.0) g/dL Hct 31.1 L (37.0-47.0) % Plt Count 357 (150-375) k/mm3 BMP 11/27/24 10:18 Sodium 134 L Potassium 4.5 Chloride 98 Carbon Dioxide 26 BUN 14 Creatinine 0.67 L Glucose 96 Calcium 9.5 Cardiac Enzymes 11/27/24 Range/Units 10:18 Troponin I < 0.012 (0.000-0.034) ng/mL Liver Function 11/27/24 Range/Units 10:18 Total Bilirubin 0.3 (0.2-1.3) mg/dL AST 21 (14-36) U/L ALT 11 (6-35) U/L Alkaline Phosphatase 122 (38-126) U/L Albumin 4.2 (3.5-5.1) g/dL Assessment and Plan Assessment and plan (1) Chest pain: Qualifiers: Chest pain type: unspecified Qualified Code(s): R07.9 - Chest pain, unspecified Code(s): R07.9 - Chest pain, unspecified Status: Acute Assessment and Plan: - EKG, initial: Ectopic atrial rhythm, rate 65, low QRS voltage in precordial leads. Awaiting formal read. - CXR: Cardiomegaly - Troponin: <0.012, 3 and 6 hour ordered - ASA 324 given by EMS - SL nitro PRN - check TSH and lipid panel - cardiology consulted, Levar LANTIGUA Continue to trend troponin Reviewed EMS EKG strips, does not believe it is polymorphic ventricular tachycardia and appears more consistent with artifact Obtain echo - no previous stress test or echo on file - telemetry monitoring (2) Abdominal pain: Qualifiers: Abdominal location: generalized Qualified Code(s): R10.84 - Generalized abdominal pain Code(s): R10.9 - Unspecified abdominal pain Status: Acute Assessment and Plan: Patient reporting diffuse abdominal pain and upper abdominal pain. Difficult to pinpoint location, non reproducible/patient is also a mildly unreliable historian. No accompanying nausea, vomiting, fever, chills. - last bowel movement unclear, possibly today. Patient reports she passed a small amount of stool when she urinated. - CT abdomen/pelvis non con ordered - check UA Plan Diet: Heart healthy GI Prophylaxis: Not currently indicated DVT Prophylaxis: SCDs Lines: Peripheral Code Status: DNR Quality VTE Prophylaxis VTE prophylaxis: mechanical ordered Hospitalist MIPS Advance Care Plan I have confirmed that the patient's Advanced Care Plan is present, code status is documented, or surrogate decision maker is listed in patient medical record.: Yes Medication Reconciliation I have utilized all available resources to obtain, update and review the patients current medications (includes all prescriptions, OTC, herbals, cannabis, and nutritional supplements).: Yes
--- NOTE | 2024-11-27 12:56 | ECG_ITS ---
Test Date: 2024-11-27 13:09:39 Measurements Intervals [place] Rate: 61 P: -15 AK: 204 QRS: 21 QRSD: 106 T: 19 QT: 384 QTc: 390 Interpretive Statements SINUS RHYTHM LOW QRS VOLTAGE IN PRECORDIAL LEADS Electronically Signed On 11-29-2024 13:50:09 CDT by Mamadou Encarnacion D.O
--- NOTE | 2024-11-27 13:16 | ED_ITS ---
HPI - Chest Pain General Chief Complaint: Chest Pain Stated Complaint: chest pain Time Seen by Provider: 11/27/24 10:26 Source: patient and EMS Mode of arrival: EMS Limitations: physical limitation History of Present Illness HPI narrative: 74-year-old with a history of seizure disorder was brought in from intermediate with the complaints of chest pain and a prior abdominal pain which started this morning. Upon EMS arrival patient item the. Of torsade which resolved within 45 seconds. She presently denies having any shortness of breath, nausea has mild for a abdominal pain. Related Data Allergies Allergy/AdvReac Type Severity Reaction Status Date / Time No Known Allergies Allergy Verified 11/27/24 09:56 Review of Systems 2 Review of Systems: All systems reviewed & are unremarkable except as noted in HPI and below Constitutional: Constitutional: Reports no additional constitutional complaints Eyes: Eyes: Reports no additional eye complaints ENT: Reports system reviewed and no additional complaints, except as documented Cardiovascular: Cardiovascular: Reports as per HPI Respiratory: Respiratory: Reports as per HPI Gastrointestinal: Gastrointestinal: Reports as per HPI Musculoskeletal: Musculoskeletal: Reports no additional musculoskeletal complaints Neurologic: Reports system reviewed and no additional complaints, except as documented Psychiatric: Psychiatric: Reports no additional psychiatric complaints Exam 2 Narrative: GENERAL: Well-appearing, well-nourished, and in no acute distress. HEAD: Normocephalic, atraumatic. EYES: PERRLA and EOMI. ENT: Nares clear, no rhinorrhea or epistaxis. Mucous membranes moist. NECK: Supple. CHEST: Clear to auscultation. No respiratory distress. HEART: Regular rate and rhythm. No murmur heard. Normal peripheral pulses. ABDOMEN: Soft, nontender, nondistended, normal active bowel sounds. EXTREMITIES: Normal range of motion. No edema. SKIN: Warm, dry, no rash. NEURO: No focal deficits. Alert and oriented x3. PSYCH: Normal mood and affect. Course Course Emergency Course: Which should remains comfortable. No further episodes of chest pain but has mild upper abdominal pain. Did inform her about the lab work. She is agreeable with admission discussed with the hospitalist as well as Cardiology. Vital Signs Vital signs: Vital Signs Temperature 36.6 C 11/27/24 09:42 Pulse Rate 65 11/27/24 09:42 Respiratory Rate 15 11/27/24 09:42 Pulse Oximetry 100 11/27/24 09:42 Oxygen Delivery Room Air 03/14/25 09:42 Temperature 36.6 C 11/27/24 09:42 Pulse Rate 61 11/27/24 12:30 Respiratory Rate 17 11/27/24 12:30 Blood Pressure 150/66 H 11/27/24 12:30 Pulse Oximetry 100 11/27/24 12:30 Oxygen Delivery Room Air 11/27/24 10:01 MDM - Chest Pain MDM Narrative Medical decision making narrative: 74-year-old with a history of seizure disorder initial EKG by he has been showed H door side. Her lab work and EKG here in the ER remains normal. Discussed with cardiology will admit Differential Diagnosis Differential diagnosis: Likely atypical chest pain, st elevation myocardial infarction and chest pain Medical Records Data Attestation: I reviewed the patient's medical records. Lab Data Attestation: I reviewed the patient's lab results. 11/27/24 10:18 11/27/24 10:18 Labs: Lab Results 11/27/24 Range/Units 10:18 WBC 5.6 (4.5-10.0) K/mm3 RBC 3.33 L (4.2-5.4) M/mm3 Hgb 10.2 L (12.0-15.0) g/dL Hct 31.1 L (37.0-47.0) % MCV 93.4 (80-100) fl MCH 30.6 (26-34) pg MCHC 32.8 (32-36) g/dl RDW 13.6 (11.5-14.5) % Plt Count 357 (150-375) k/mm3 MPV 9.3 (7.4-10.4) fl Immature Gran % (Auto) 0.4 (0-0.5) % Neut % (Auto) 45.5 (45.5-73.1) % Lymph % (Auto) 40.0 (18.3-44.2) % [place] % (Auto) 10.6 H (2.6-8.5) % Eos % (Auto) 3.0 (0-4.4) % Baso % (Auto) 0.5 (0.2-1.2) % Lymph # (Auto) 2.23 (0.9-3.2) K/mm3 [place] # (Auto) 0.6 (0.1-0.6) K/mm3 Eos # (Auto) 0.2 (0-0.3) K/mm3 Baso # (Auto) 0.0 (0.0-0.1) K/mm3 Abs Immat Gran (auto) 0.02 (0.00-0.031) K/mm3 Absolute Neuts (auto) 2.5 (1.3-6.7) K/mm3 Absolute Nucleated RBC 0.000 (0.0-0.012) K/mm3 Nucleated RBC % 0.0 (0.0-0.2) % PT 14.1 (11.1-14.7) Seconds INR 1.0 APTT 37.0 H (22.3-36.8) Seconds Sodium 134 L (137-145) mmol/L Potassium 4.5 (3.4-5.0) mmol/L Chloride 98 (98-107) mmol/L Carbon Dioxide 26 (22-30) mmol/L Anion Gap 10 (4-12) mmol/L BUN 14 (7-17) mg/dL Creatinine 0.67 L (0.7-1.0) mg/dL Estim Creat Clear Calc 68 ml/min Estimated GFR > 60 (59 - ) Glucose 96 (65-110) mg/dL Calcium 9.5 (8.4-10.2) mg/dL Total Bilirubin 0.3 (0.2-1.3) mg/dL AST 21 (14-36) U/L ALT 11 (6-35) U/L Alkaline Phosphatase 122 (38-126) U/L Troponin I < 0.012 (0.000-0.034) ng/mL Total Protein 7.0 (6.3-8.2) g/dL Albumin 4.2 (3.5-5.1) g/dL Lipase 94 (23-300) U/L ABG Data Attestation: I personally reviewed and interpreted this ABG as follows: Imaging Data Attestation: I personally reviewed and interpreted this imaging study as follows: ECG Data EKG #1: ECG completion date: 11/27/24 ECG completion time: 13:32 EKG Interpretation: normal rate (65), sinus rhythm, non-specific ST changes, NL axis and no acute changes EKG #2: ECG completion date: 11/27/24 ECG completion time: 13:09 EKG Interpretation: normal rate (61), sinus rhythm, no ectopy, normal QT and NL axis Discharge Plan Discharge Clinical Impression: Chest pain Qualifiers: Chest pain type: unspecified Qualified Code(s): R07.9 - Chest pain, unspecified Patient Disposition: Still a Patient Condition: Stable Patient Language: Cameroonian Follow-up/Referrals: Rene,MD Saloni [Primary Care Provider] - Time of Disposition: 13:17
[2024-11-27 13:59] LABS: Troponin I 0.013 ng/mL (0.000-0.034)
--- NOTE | 2024-11-27 13:59 | P.CONCA_ITS ---
Assessment and Plan Assessment and plan (1) Chest pain: Qualifiers: Chest pain type: unspecified Qualified Code(s): R07.9 - Chest pain, unspecified Code(s): R07.9 - Chest pain, unspecified Status: Acute Plan 1. Chest pain PLAN: -Troponins negative x 2. EKG with nonspecific STTW abnormality. -Personally reviewed the EMS strips. I do not believe this is polymorphic ventricular tachycardia. Appears more consistent with artifact. -Recommend to finish trend of troponins. -Obtain echocardiogram. -Has reproducible chest wall tenderness. Management as per primary team. -Has abdominal tenderness upon examination. Workup and management as per primary team. History of Present Illness History of Present Illness Consult date/time: 11/27/24 13:59 Requesting physician: Randolph Andrade MD Consult reason: chest pain Reason For Visit: chest pain Narrative: We are consulted for chest pain, possible VT. Leatha is a 74 year old female who came from long-term for evaluation of chest pain. History is difficult to obtain from the patient due to history of mental delay, answers some questions, but other answers are unclear. Per EMS report, the long-term called them after the patient had an episode of screaming and yelling. She then clenched her chest. EMS gave patient SL NTG. While en route to the hospital, she reportedly was noted to have polymorphic VT. In the ED, EKG shows sinus rhythm, nonspecific STTW abnormality. Upon my examination, patient noted to have abdominal tenderness upon examination, has some reproducible chest wall tenderness. Workup shows troponins negative x 2. CXR with cardiomegaly. Review of Systems 2 Review of Systems: All systems reviewed & are unremarkable except as noted in HPI and below (HPI) Meds Home Medications and Allergies Allergies Allergy/AdvReac Type Severity Reaction Status Date / Time No Known Allergies Allergy Verified 11/27/24 09:56 Vital Signs Vital Signs - 24 hr 11/27/24 09:42 11/27/24 09:57 11/27/24 10:01 Temperature 36.6 C Pulse Rate 65 Respiratory Rate 15 Blood Pressure 164/81 H Pulse Oximetry 100 95 Oxygen Delivery Room Air Room Air 11/27/24 10:57 11/27/24 12:30 Temperature Pulse Rate 64 61 Respiratory Rate 17 17 Blood Pressure 162/66 H 150/66 H Pulse Oximetry 100 100 Oxygen Delivery Exam 2 Const: General: comfortable and no acute distress HENMT: Mouth: Yes moist mucous membranes Eyes: General: appearance normal, both eyes and all related structures S clera: sclerae normal Resp: Effort & Inspection: normal respiratory effort Cardio: Rate: regular rate Rhythm: regular rhythm Heart sounds: no murmurs GI: GI Palp: Yes Tenderness to palpation present (GI) Skin: General skin exam: normal color Neuro: Other: Garbled speech at times Psych: Affect: normal affect Results Labs and Meds 11/27/24 10:18 11/27/24 10:18 Lab results: Cardiac Enzymes 11/27/24 11/27/24 Range/Units 10:18 13:18 AST 21 (14-36) U/L Troponin I < 0.012 0.013 (0.000-0.034) ng/mL Coagulation 11/27/24 Range/Units 10:18 PT 14.1 (11.1-14.7) Seconds APTT 37.0 H (22.3-36.8) Seconds CBC 11/27/24 Range/Units 10:18 WBC 5.6 (4.5-10.0) K/mm3 RBC 3.33 L (4.2-5.4) M/mm3 Hgb 10.2 L (12.0-15.0) g/dL Hct 31.1 L (37.0-47.0) % Plt Count 357 (150-375) k/mm3 Lymph # (Auto) 2.23 (0.9-3.2) K/mm3 [place] # (Auto) 0.6 (0.1-0.6) K/mm3 Eos # (Auto) 0.2 (0-0.3) K/mm3 Baso # (Auto) 0.0 (0.0-0.1) K/mm3 Comprehensive Metabolic Panel 11/27/24 Range/Units 10:18 Sodium 134 L (137-145) mmol/L Potassium 4.5 (3.4-5.0) mmol/L Chloride 98 (98-107) mmol/L Carbon Dioxide 26 (22-30) mmol/L BUN 14 (7-17) mg/dL Creatinine 0.67 L (0.7-1.0) mg/dL Glucose 96 (65-110) mg/dL Calcium 9.5 (8.4-10.2) mg/dL AST 21 (14-36) U/L ALT 11 (6-35) U/L Alkaline Phosphatase 122 (38-126) U/L Total Protein 7.0 (6.3-8.2) g/dL Albumin 4.2 (3.5-5.1) g/dL Patient Weight 11/27/24 23:59 Weight 93 kg
[2024-11-27 14:52] LABS: Cholesterol 165 mg/dL (0-200); HDL Direct 78 mg/dL; Triglycerides 118 mg/dL (<150)
[2024-11-27 15:04] LABS: LDL Cholesterol Direct 55 mg/dL
--- NOTE | 2024-11-27 15:20 | PC.NURSE ---
Attempted to call report, IMU RN not available. ED vamp stitcher made aware, says to send pt upstairs.
--- NOTE | 2024-11-27 15:40 | ADMGEN ---
This patient, Leatha Klein, was admitted to IMU Room 206-02. Patient/family oriented to hospital policies and general routines including ID bracelet, bed and alarms, visiting hours, pain management, procedures, bathroom and other care routines, personal items, smoking policy, room service/diet, and visiting hours. Information on how to activate the Rapid Response Team has been discussed. Patient/Family are encouraged to report perceived risks to care and to ask questions if they do not understand what they are told or what they should do.
[2024-11-27] MEDS: hydrALAZINE HCL 20 MG/ML VIAL 10 MG IV PUSH (18:02)
[2024-11-27] MEDS: ATORVASTATIN 20 MG TABLET PO (18:02)
[2024-11-27] MEDS: CALCIUM CARBONATE (TUMS) 500 MG (200 MG ELEMENTAL) 400 MG PO (18:02)
[2024-11-27 18:03] LABS: Troponin I < 0.012 ng/mL (0.000-0.034)
[2024-11-27] MEDS: PRIMIDONE 250 MG TABLET PO (20:28)
[2024-11-27] MEDS: lamoTRIgine 100 MG TABLET 200 MG PO (20:28)
[2024-11-28] VITALS (10 sets, daily range): BP systolic 107–147; BP diastolic 44–67; PULSE 65–77; RESP 16; TEMP 36.8–36.9; O2SAT 96–100
--- NOTE | 2024-11-28 | ECHO_ITS ---
Patient Info Name: Leatha Klein Age: 74 years : 1950 Gender: Female Ht: 62 in Wt: 201 lbs BSA: 2.04 m2 HR: 65 bpm BP: 135 / 50 mmHg Heart Rhythm: Sinus Rhythm Technical Quality: Fair Exam Date: 11/28/2024 7:38 AM Exam Location: Echo Lab Patient Status: Inpatient Admit Date: 11/27/2024 Staff Ordering Physician: Marielle Cristobal MD (odalys/tasha) Instrumentation And Controls Technician: Yesenia Perales RDCS Attending Provider: Saw Smith MD Referring Physician: Levar LOPEZ; Exam Type: CA echo doppler color flow Study Info Indications - Chest pain Complete two-dimensional, color flow and Doppler transthoracic echocardiogram is performed. Summary 1. Complete two-dimensional, color flow and Doppler transthoracic echocardiogram is performed. Recommendations * Normal LV size. Mild LVH. Normal LV systolic and diastolic function, ejection fraction about 65-70%. Normal RV size and systolic function. Mild biatrial enlargement. Normal mitral valve structure. Aortic valve not well visualized, no hemodynamically significant stenosis. Trace TR, RVSP 33 mmHg. Trivial to mild pericardial effusion predominantly along RV wall, no echo evidence of tamponade. Left Ventricle Left ventricular chamber dimension is normal. Left ventricular systolic function is normal, estimated at 65-70%. There is mildly increased left ventricular wall thickness. The left ventricular diastolic function is normal. Right Ventricle Right ventricular chamber dimension is normal. Right ventricular systolic function is normal. Left Atria Left atrial chamber dimension is mildly enlarged. Right Atria Right atrial chamber dimension is mildly enlarged. Aortic Valve The aortic valve is not well visualized. There is no aortic valve stenosis. Pulmonic Valve The pulmonic valve is normal. Mitral Valve The mitral valve has normal leaflets. There is trace mitral valve regurgitation. Tricuspid Valve The tricuspid valve leaflets are normal. There is trace tricuspid valve regurgitation. Pericardium/Pleural There is trivial pericardial effusion. Aorta The aortic root size at the sinus of Valsalva is not well visualized. Left Ventricular Outflow Tract Name Value Normal LVOT 2D LVOT Diameter 2.0 cm LVOT Doppler LVOT Peak Gradient 5 mmHg LVOT Mean Gradient 3 mmHg LVOT VTI 30 cm LVOT VTI/AV VTI Ratio 0.9 LVOT Stroke Volume 92 ml LVOT CO 5.3 l/min LVOT CI 2.6 l/min/m2 Pulmonic Valve Name Value Normal RVOT Doppler RVOT Peak Gradient 3 mmHg PV Doppler PV Peak Gradient 6 mmHg Mitral Valve Name Value Normal MV Doppler MV Decel [place] 257 cm/s2 MV PHT 86 ms MV Area (PHT) 2.5 cm2 4.0-5.0 MV Diastolic Function MV E Peak Velocity 76 cm/s MV A Peak Velocity 69 cm/s MV E/A 1.1 MV Decel Time 298 ms MV Annular TDI MV E/e' (Septal) 12.8 <=8.0 MV E/e' (Lateral) 9.2 <=8.0 MV E/e' (Average) 11.0 Tricuspid Valve Name Value Normal TV Regurgitation Doppler TR Peak Velocity 249 cm/s TR Peak Gradient 17 mmHg Estimated PAP/RSVP RA Pressure 8 mmHg <=5 PA Systolic Pressure 33 mmHg <36 RV Systolic Pressure 33 mmHg <36 Aortic Valve Name Value Normal AV Doppler AV Peak Velocity 131 cm/s AV Peak Gradient 7 mmHg AV Mean Gradient 4 mmHg AV VTI 34 cm AV Area (Cont Eq VTI) 2.7 cm2 >=3.0 AV Area (Cont Eq Messi) 2.6 cm2 AV Regurgitation 2D LVOT Area 3.0 cm2 Ventricles Name Value Normal LV Dimensions 2D/MM IVS Diastolic Thickness (2D) 1.2 cm 0.6-1.0 LVID Diastole (2D) 4.6 cm 3.8-5.2 LVIW Diastolic Thickness (2D) 1.0 cm 0.6-0.9 LVID Systole (2D) 3.1 cm 2.2-3.5 LVOT Diameter 2.0 cm LV Mass (2D Cubed) 180.46 g 67.00-162.00 LV Mass Index (2D Cubed) 88 g/m2 43-95 Relative Wall Thickness (2D) 0.46 LV Fractional Shortening/Ejection Fraction 2D/MM LV Fractional Shortening (2D) 33 % 27-45 LV EF (2D Teicholz) 61 % 54-74 LV Diastolic Volume (4C MOD) 116 ml LV EF (4C MOD) 71 % LV Diastolic Volume (2C MOD) 133 ml LV EF (2C MOD) 71 % LV Diastolic Volume (BP MOD) 124 ml 46-106 LV Diastolic Volume Index (BP MOD) 61 ml/m2 29-61 LV Systolic Volume (BP MOD) 36 ml 14-42 LV Systolic Volume Index (BP MOD) 18 ml/m2 8-24 LV EF (BP MOD) 71 % 54-74 LV Diastolic Length (4C) 8.2 cm LV Systolic Length (4C) 5.9 cm LV Stroke Volume (4C MOD) 82 ml Atria Name Value Normal LA Dimensions LA Volume (4C A-L) 75 ml LA Volume (BP A-L) 69 ml RA Dimensions RA Area (4C) 21.1 cm2 <=18.0 Report Signatures
[2024-11-28 05:12] LABS: Basophils Absolute Auto 0.1 K/mm3 (0.0-0.1); Basophils Percent Auto 0.8 % (0.2-1.2); Eosinophils Absolute Auto 0.2 K/mm3 (0-0.3); Eosinophils Percent Auto 3.5 % (0-4.4); Hematocrit 29.7 % (37.0-47.0); Hemoglobin 9.7 g/dL (12.0-15.0); Immature Granulocyte Absolute 0.02 K/mm3 (0.00-0.031); Immature Granulocyte Percent A 0.3 % (0-0.5); Lymphocytes Absolute Auto 2.68 K/mm3 (0.9-3.2); Lymphocytes Percent Auto 42.2 % (18.3-44.2); Mean Corpuscular HGB Conc 32.7 g/dl (32-36); Mean Corpuscular Hemoglobin 30.3 pg (26-34); Mean Corpuscular Volume 92.8 fl (80-100); Monocytes Absolute Auto 0.7 K/mm3 (0.1-0.6); Monocytes Percent Auto 10.9 % (2.6-8.5); Neutrophils Absolute Auto 2.7 K/mm3 (1.3-6.7); Neutrophils Percent Auto 42.3 % (45.5-73.1); Platelet Count Result 328 k/mm3 (150-375); Red Cell Distribution Width 13.6 % (11.5-14.5); White Blood Count 6.4 K/mm3 (4.5-10.0)
[2024-11-28 05:39] LABS: Anion Gap 8 mmol/L (4-12); Blood Urea Nitrogen 16 mg/dL (7-17); Calcium 9.1 mg/dL (8.4-10.2); Carbon Dioxide 28 mmol/L (22-30); Chloride 97 mmol/L (98-107); Estimated CRCL calculation 72 ml/min; Estimated Glomerular Filt Rate > 60; Glucose 92 mg/dL (65-110); Potassium 4.6 mmol/L (3.4-5.0); Sodium 133 mmol/L (137-145)
[2024-11-28 05:46] LABS: Add Urine Microscopic? YES; Appearance Urine Cloudy (Clear); Bacteria Urine 4+ /hpf; Bilirubin Urine Negative (Negative); Blood Urine Negative (Negative); Color Urine Yellow (Yellow); Glucose Urine UA Negative (Negative); Ketones Urine Negative (Negative); Leukocyte Esterase Ur 3+ LEU/UL (Negative); Nitrate Urine Negative (Negative); Non Pathogenic Casts 0-2; Protein Urine Negative (Negative); RBC Urine 0-2 /hpf (0-2); Specific Grav Ur 1.008 (1.001-1.035); Squamous Epithelial Cell Urine None Seen /hpf (Few); Urobilinogen Urine 0.2 mg/dL (<2.0); pH Urine 7.5 (5.0-9.0)
[2024-11-28] MEDS: POTASSIUM CHLORIDE 20 MEQ ER TABLET 40 MEQ PO (06:37)
[2024-11-28] MEDS: ESCITALOPRAM OXALATE 5 MG TABLET PO (09:05)
[2024-11-28] MEDS: CALCIUM CARBONATE (TUMS) 500 MG (200 MG ELEMENTAL) 400 MG PO ×2 (09:05→14:06)
[2024-11-28] MEDS: lamoTRIgine 100 MG TABLET 200 MG PO (09:05)
[2024-11-28] MEDS: PRIMIDONE 250 MG TABLET PO (09:06)
[2024-11-28] MEDS: ASPIRIN 81 MG ENTERIC TABLET PO (09:06)
--- NOTE | 2024-11-28 09:52 | P.PNCA_ITS ---
Progress Note: A&P Assessment and Plan (1) Chest pain: Qualifiers: Chest pain type: unspecified Qualified Code(s): R07.9 - Chest pain, unspecified Code(s): R07.9 - Chest pain, unspecified Status: Acute Plan 1. Chest pain with features atypical for ischemia PLAN: -serial troponins negative. EKG with nonspecific STTW abnormality. -reported EMS EKG changes were suggestive of artifact. Predominantly in sinus rhythm on telemetry -echo and pulmonary assessment shows preserved LV systolic function. -no further cardiac testing is anticipated at this time. -discharge planning as per primary team. -will sign off Subjective Date/time seen: 11/28/24 09:52 Interval history: 11/28/2024-patient is lying on the bed, denies any chest pain or shortness of breath at present. Patient's mother is in the room. On telemetry, she has predominantly in sinus rhythm. ECHO on preliminary assessment shows preserved LV systolic function. Review of Systems Review of Systems: General: Negative for fever, chills, fatigue Psychological: Negative for anxiety, depression Ophthalmic: negative for loss of vision ENT: Negative for epistaxis, headaches Allergy and immunology: Negative for hives, nasal congestion Hematologic and lymphatic: Negative for overt bleeding problems Endocrine: Negative for hot flashes, palpitations Respiratory: Negative for cough, hemoptysis Cardiovascular: Negative for chest pain, shortness of breath, leg swelling, palpitations, dizziness, syncope Gastrointestinal: Negative for abdominal pain, nausea, vomiting, hematochezia Musculoskeletal: Negative for myalgia, joint pains Neurological: Negative for weakness Dermatological: Negative for rash, skin discoloration Exam Narrative: PHYSICAL EXAMINATION: GENERAL: Obese female, Alert MENTAL STATUS: affect appropriate to mood EYES: Extraocular movements intact, no pallor EARS: External ears appear normal, hearing grossly normal NOSE: Normal and patent, no discharge MOUTH: Mucous membranes moist, tongue normal NECK: Supple, no JVD CHEST: Good respiratory effort, clear to auscultation HEART: Normal rate, regular rhythm, normal S1 and S2 ABDOMEN: Soft, nontender NEUROLOGICAL: Alert, speech coherent MUSCULOSKELETAL: No major deformity, no amputation EXTREMITIES: No pedal edema, no clubbing, no cyanosis SKIN: no cyanosis PSYCHIATRIC: No agitation Objective Data Vital Signs Vital Signs: Vital Signs - 24 hr 11/27/24 09:57 11/27/24 10:01 11/27/24 10:57 Temperature Pulse Rate 64 Respiratory Rate 17 Blood Pressure 164/81 H 162/66 H Pulse Oximetry 95 100 Oxygen Delivery Room Air 11/27/24 12:30 11/27/24 14:20 11/27/24 14:53 Temperature 36.6 C Pulse Rate 61 58 L 58 L Respiratory Rate 17 13 17 Blood Pressure 150/66 H 180/67 H 157/65 H Pulse Oximetry 100 97 Oxygen Delivery 11/27/24 15:50 11/27/24 16:00 11/27/24 20:00 Temperature 36.6 C 36.6 C Pulse Rate 62 57 L 68 Respiratory Rate 18 18 Blood Pressure 187/58 H 134/52 L Pulse Oximetry 100 100 Oxygen Delivery 11/27/24 20:00 11/27/24 20:25 11/27/24 22:00 Temperature Pulse Rate 65 64 Respiratory Rate Blood Pressure Pulse Oximetry Oxygen Delivery Room Air 11/28/24 00:00 11/28/24 00:00 11/28/24 00:40 Temperature 36.9 C Pulse Rate 70 67 Respiratory Rate 16 Blood Pressure 107/44 L Pulse Oximetry 96 Oxygen Delivery Room Air 11/28/24 02:00 11/28/24 04:00 11/28/24 04:00 Temperature 36.8 C Pulse Rate 66 71 Respiratory Rate 16 Blood Pressure 135/50 L Pulse Oximetry 96 Oxygen Delivery Room Air 11/28/24 04:00 11/28/24 06:00 11/28/24 08:00 Temperature 36.9 C Pulse Rate 70 65 70 Respiratory Rate 16 Blood Pressure 147/63 H Pulse Oximetry 97 Oxygen Delivery Intake/Output Intake/Output: Intake & Output 11/25/24 11/26/24 11/27/24 11/28/24 23:59 23:59 23:59 23:59 Intake Total 540 600 Output Total 400 Balance 540 200 Meds/Results Medications: Active Medications Generic Name Dose Route Start Last Admin Trade Name Freq PRN Reason Stop Dose Admin Acetaminophen 650 mg 11/27/24 13:36 Acetaminophen 325 Mg Tablet PO Q4H PRN Mild Pain (1-3) or Fever Aspirin 81 mg 11/28/24 09:00 11/28/24 09:06 Aspirin 81 Mg Enteric Tablet PO 81 mg QAM REYNOLD Administration Atorvastatin Calcium 20 mg 11/27/24 18:00 11/27/24 18:02 Atorvastatin 20 Mg Tablet PO 20 mg QPM REYNOLD Administration Calcium Carbonate 400 mg 11/27/24 17:35 11/28/24 09:05 Calcium Carbonate (Tums) 500 Mg (200 Mg Elemental) PO 400 mg TID REYNOLD Administration Carbamazepine 500 mg 11/27/24 22:00 11/28/24 06:37 Carbamazepine Chew 100 Mg Chew PO 500 mg Q8HR REYNOLD Administration Escitalopram Oxalate 5 mg 11/28/24 09:00 11/28/24 09:05 Escitalopram Oxalate 5 Mg Tablet PO 5 mg DAILY REYNOLD Administration Lamotrigine 200 mg 11/27/24 21:00 11/28/24 09:05 Lamotrigine 100 Mg Tablet PO 200 mg Q12HR REYNOLD Administration Morphine Sulfate 2 mg 11/27/24 13:36 Morphine Sulfate (*Crx) 2 Mg/Ml Inj IV PUSH Q2H PRN Pain Rated 7-10 Nitroglycerin 0.4 mg 11/27/24 13:06 Nitroglycerin Sl 0.4 Mg Tablet SUBLINGUAL Q5MIN PRN Chest Pain Ondansetron HCl 4 mg 11/27/24 13:36 Ondansetron Inj 4 Mg/2 Ml Vial IV PUSH Q4H PRN Nausea Perflutren Lipid Microsphere 0 ml 11/27/24 14:37 Perflutren Lipid Microspheres 1.5 Ml Vial Diluted To 10 Ml Total Volume IV PUSH 11/30/24 14:37 ONCE PRN adequate visualization Protocol Potassium Chloride 40 meq 11/28/24 06:30 11/28/24 06:37 Potassium Chloride 20 Meq Er Tablet PO 40 meq DAILY@0630 [facility] Administration Primidone 250 mg 11/27/24 21:00 11/28/24 09:06 Primidone 250 Mg Tablet PO 250 mg Q12HR REYNOLD Administration Radiology Results: ITS Impressions Chest X-Ray 11/27/24 11:23 IMPRESSION: 1. Cardiomegaly. Labs Labs: Laboratory Results - last 24 hr 11/27/24 11/27/24 11/27/24 10:17 10:18 13:18 WBC 5.6 RBC 3.33 L Hgb 10.2 L Hct 31.1 L MCV 93.4 MCH 30.6 MCHC 32.8 RDW 13.6 Plt Count 357 MPV 9.3 Immature Gran % (Auto) 0.4 Neut % (Auto) 45.5 Lymph % (Auto) 40.0 Mccreary % (Auto) 10.6 H Eos % (Auto) 3.0 Baso % (Auto) 0.5 Lymph # (Auto) 2.23 Mccreary # (Auto) 0.6 Eos # (Auto) 0.2 Baso # (Auto) 0.0 Abs Immat Gran (auto) 0.02 Absolute Neuts (auto) 2.5 Absolute Nucleated RBC 0.000 Nucleated RBC % 0.0 PT 14.1 INR 1.0 APTT 37.0 H Sodium 134 L Potassium 4.5 Chloride 98 Carbon Dioxide 26 Anion Gap 10 BUN 14 Creatinine 0.67 L Estim Creat Clear Calc 68 Estimated GFR > 60 Glucose 96 Calcium 9.5 Magnesium Total Bilirubin 0.3 AST 21 ALT 11 Alkaline Phosphatase 122 Troponin I < 0.012 0.013 Total Protein 7.0 Albumin 4.2 Triglycerides 118 Cholesterol 165 LDL Cholesterol Direct 55 HDL Direct 78 Lipase 94 TSH (Reflex) Urine Color Urine Appearance Urine pH Ur Specific [place] Urine Protein Urine Glucose (UA) Urine Ketones Ur Blood (Man) Urine Nitrate Urine Bilirubin Urine Urobilinogen Leukocyte Esterase Rfl Urine RBC Urine WBC Ur Squamous Epith Cells Urine Bacteria Urine Casts 11/27/24 11/28/24 11/28/24 17:23 04:53 05:28 WBC 6.4 RBC 3.20 L Hgb 9.7 L Hct 29.7 L MCV 92.8 MCH 30.3 MCHC 32.7 RDW 13.6 Plt Count 328 MPV 9.0 Immature Gran % (Auto) 0.3 Neut % (Auto) 42.3 L Lymph % (Auto) 42.2 Mccreary % (Auto) 10.9 H Eos % (Auto) 3.5 Baso % (Auto) 0.8 Lymph # (Auto) 2.68 Mccreary # (Auto) 0.7 H Eos # (Auto) 0.2 Baso # (Auto) 0.1 Abs Immat Gran (auto) 0.02 Absolute Neuts (auto) 2.7 Absolute Nucleated RBC 0.000 Nucleated RBC % 0.0 PT INR APTT Sodium 133 L Potassium 4.6 Chloride 97 L Carbon Dioxide 28 Anion Gap 8 BUN 16 Creatinine 0.63 L Estim Creat Clear Calc 72 Estimated GFR > 60 Glucose 92 Calcium 9.1 Magnesium 2.0 Total Bilirubin AST ALT Alkaline Phosphatase Troponin I < 0.012 Total Protein Albumin Triglycerides Cholesterol LDL Cholesterol Direct HDL Direct Lipase TSH (Reflex) 1.200 Urine Color Yellow Urine Appearance Cloudy H Urine pH 7.5 Ur Specific [place] 1.008 Urine Protein Negative Urine Glucose (UA) Negative Urine Ketones Negative Ur Blood (Man) Negative Urine Nitrate Negative Urine Bilirubin Negative Urine Urobilinogen 0.2 Leukocyte Esterase Rfl 3+ H Urine RBC 0-2 Urine WBC 11-20 H Ur Squamous Epith Cells None seen Urine Bacteria 4+ H Urine Casts 0-2
--- NOTE | 2024-12-09 09:17 | PM.DS ---
DS: Admitting Diagnosis Discharge Date 11/28/24 Admitting Diagnosis Agitation, Irregular Heart Rate DS: Discharge Diagnosis Discharge Diagnosis (1) Chest pain: Qualifiers: Chest pain type: unspecified Qualified Code(s): R07.9 - Chest pain, unspecified Code(s): R07.9 - Chest pain, unspecified Status: Acute Assessment and Plan: - EKG, initial: Ectopic atrial rhythm, rate 65, low QRS voltage in precordial leads. Awaiting formal read. - CXR: Cardiomegaly - Troponin: <0.012, 3 and 6 hour ordered - ASA 324 given by EMS - SL nitro PRN - check TSH and lipid panel - cardiology consulted, Levar LANTIGUA Continue to trend troponin Reviewed EMS EKG strips, does not believe it is polymorphic ventricular tachycardia and appears more consistent with artifact Obtain echo - no previous stress test or echo on file - telemetry monitoring (2) Abdominal pain: Qualifiers: Abdominal location: generalized Qualified Code(s): R10.84 - Generalized abdominal pain Code(s): R10.9 - Unspecified abdominal pain Status: Acute Assessment and Plan: Patient reporting diffuse abdominal pain and upper abdominal pain. Difficult to pinpoint location, non reproducible/patient is also a mildly unreliable historian. No accompanying nausea, vomiting, fever, chills. - last bowel movement unclear, possibly today. Patient reports she passed a small amount of stool when she urinated. - CT abdomen/pelvis non con ordered - check UA DS: Summary Hospital Course Hospital Course: CXR: Cardiomegaly - Troponin: <0.012, 3 and 6 hour ordered - ASA 324 given by EMS - SL nitro PRN - check TSH and lipid panel - cardiology consulted, Levar LANTIGUA Continue to trend troponin Reviewed EMS EKG strips, does not believe it is polymorphic ventricular tachycardia and appears more consistent with artifact Obtain echo - no previous stress test or echo on file - telemetry monitoring patient presented with CP, her 3 sets of cardiac enzymes are normal, there is no acute changes on EKG, cardiac echo is essentially normal with normal LV function, seen by geriatric personal care aide does not recommend any cardiac work up and patient is clinically stable, will discharge patient today. Time Spent with Patient Time attestation: Total time spent providing and/or coordinating discharge services: Discharge Plan Discharge Attending physician on discharge: Saw Smith Consulting providers: Marielle Cristobal; Petrona Corrales; Mamadou Encarnacion; Reji Cerna V. Discharging Clinician: Bianca Saravia Patient Disposition: NH Half-Way/Asst Living Activity: as tolerated Diet: heart healthy Patient Instructions: Antibiotic Form Patient Language: Martiniquais Stand Alone Forms: General Discharge Information, Half-Way Discharge Follow-up/Referrals: Rene,MD Saloni [Primary Care Provider] - Discharge Medications: New aspirin 81 mg Tablet,Delayed Release (Dr/Ec) 81 mg PO QAM Qty: 30 0RF nitroglycerin [Nitrostat] 0.4 mg Tablet, Sublingual 0.4 mg sublingual Q5MIN PRN (Reason: Chest Pain) Qty: 26 0RF Continued atorvastatin 20 mg tablet 20 mg PO QPM calcium carbonate [Calcium 500] 500 mg calcium (1,250 mg) tablet,chewable 500 mg PO TID carbamazepine 100 mg tablet,chewable 500 mg PO TID escitalopram oxalate 5 mg tablet 5 mg PO DAILY lamotrigine 200 mg tablet 200 mg PO Q12H potassium chloride 20 mEq tablet,ER particles/crystals 40 meq PO DAILY@0630 primidone 250 mg tablet 250 mg PO Q12H Date of admission: 11/27/24 13:36 Primary Care Provider: ReneSaloni Admitting Provider: Saw Smith Attending physician on admission: Bianca Saravia Condition: Stable
== END 2024-11-28 14:56 ==
LOC: ANHED 13:21 → ANHIMU 11-28 10:50
PROVIDERS: Student in an Organized Health Care Education/Training Program; Admitting Provider General Practice; Emergency Provider Family Medicine; PCP Family Medicine; Visit Provider Family Medicine
DX: R07.9 Chest pain, unspecified (principal); R10.84 Generalized abdominal pain; G40.909 Epilepsy, unspecified, not intractable, without status epilepticus; F71 Moderate intellectual disabilities; R13.10 Dysphagia, unspecified; E78.5 Hyperlipidemia, unspecified; I73.00 Raynaud's syndrome without gangrene; G47.30 Sleep apnea, unspecified; F31.9 Bipolar disorder, unspecified; I25.2 Old myocardial infarction; Z79.899 Other long term (current) drug therapy
CPT/HCPCS: 36415; 71045; 80048; 80053; 80061; 81001; 83690; 83735; 84443; 84484; 85025; 85610; 85730; 87077; 87086; 87186; 93005; 93306; 96374; 99285; A9270; G0378; J0360